=== PATIENT | female | born 1985 | race Caucasian/White ===

== ENCOUNTER 2023-04-19 16:30 | Outpatient (RCR) | payer OTHER, SELFPAY ==
--- NOTE | 2023-04-03 08:50 | HP.PTEVAL_ITS ---
Patient's Visit Information Visit Information Visit Information: SHANNON ORELLANA is a 38 year old F referred to Physical Therapy by RAVI Pollard with a diagnosis of Lateral Epicondylitis. Date of Evaluation: 03/29/23 Physical Therapist: Shreya Reno DPT Visit Plan Frequency: 2x /Week Duration: 4 Weeks Plan: Initial Evaluation performed by PT will transfer to OT Phase I Given For HEP: Manual Massage: Clockwise, Counterclockwise, Length of muscle, perpendicular to the muscle- moiste heat and wear a cock up splint at all times including sleep Initial Visit after IE: continue above and start Tricep stretching- move to phase II when no pain at rest and no more than 3/10 pain with ADL's in the brace- then follow PROTOCOL in folder, also scanned in pt chart. Subjective Subjective: Patient reports that she was stung by a wasp on her hand/shoulder around the same time and then her left arm swelled up and then started numb/tingling and the pain never really went away- [facility]- they put her on Predisone- didn't change anything- its been 2 weeks. So she went back and they sent her to PT. She also also went to see ortho who did x-rays of both elbow and cervical spine and everything came back normal. They want her to wear a brace, Meloxicam and PT. N/T- all the time- its in the hand to the elbow. Pain in the elbow is on the posterior elbow. N/T on the lateral two fingers. Describes the pain in the elbow as achy- and heavy. Worst: 8/10 Agg: hanging, cutting, using it Eases: propping it up Best: 3/10. She takes the Meloxicam in the morning before work and that helps- it kind of takes the edge off. Sleep: hard to get comfortable and will wake her up- side sleeper. No neck or shoulder/arm issues before. Right hand dominate. 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 Pain Left Elbow: Pain Intensity (Out of 10): 4 Objective Objective: Posture: FH, RS- guarding of the left UE- sits with it bent at the elbow resting comfortable on her lap Gait: decreased arm swing and trunk rotation Range of Motion: WFL in all planes of the cervical, shoulder, Elbow, wrist and hand. Does report mild discomfort with elbow extension and wrist flexion Strength: Scap: fair, Shoulder: 4+/5 throughout, Elbow: 4/5 with pain, Wrist: 4/5 with pain, [employer]: Right: 70 left: 30 Balance/Special Test Scores Quick DASH Score: 65.9075 Rehabilitation Potential Physical Therapy Diagnosis: Patient presents with hypomobility- she has decreased UE pain free ROM, strength and muscular endurance leading to poor posture and increased pain with ADL's. Rehabilitation Potential: Good Anticipated Interventions Patient/Client Instruction: Educate patient on: Benefits of Fitness Program Therapeutic Exercise to Include: Strength training, Endurance training, Balance training, Coordination, Agility training, Body mechanics, Postural training, Flexibilty training, Gait and locomotor training, Neuromotor development, Passive ROM, Active ROM, Dynamic Lumbar Stabilization and Scapular Strength/Stabilization Text: Thank you for the opportunity to evaluate your patient. For Medicare and Medicare HMO plans, please review the plan of care and approve it. It will need to be FAXED BACK to us at [phone] for Medicare purposes. For Medicare only, by signing this I certify the plan of care. Please let me know if there are questions or concerns regarding this plan of care. Physician Signature: Date:
--- NOTE | 2023-04-09 18:09 | HP.OTEVAL ---
Patient's Visit Information Visit Information Visit Information: SHANNON ORELLANA is a 38 year old F, referred to Occupational Therapy by RAVI Pollard, with a diagnosis of left lateral epi. Date of Evaluation: 04/09/23 Occupational Therapist: Arlen Morgan, CATHLEEN/[place], CHT Subjective Subjective: This 38 year old female was seen for OT eval with dx of left lateral epicondylitis. Patient reports that she was stung by a wasp on her hand/arm around the same time and then her left arm swelled up and then started numb/tingling and the pain never really went away- [facility]- they put her on Predisone- didn't change anything- its been 2 weeks. So she went back and they sent her to therapy. She also also went to see ortho who did x-rays of both elbow and cervical spine and everything came back normal. They want her to wear a brace, Meloxicam N/T- all the time- its in the hand to the elbow. Pain in the elbow is on the posterior elbow. N/T on the lateral two fingers. Describes the pain in the elbow as achy- and heavy. Worst: 03/29 Agg: pt states symptoms of tingling on dorsal and volar regions. states tingling gets worse with hot shower. pt states she has not tried ice yet. 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 pt has children sophomore in High school and youngest is 2 years old. pt states she is more concerned at this time with tingling and left elbow pain. Pain left arm: Current Pain Intensity: 4 Pain Intensity Range: 8 ROM Elbow: right 145/left 145 Forearm: right supination 70 left 65 ROM Comments: pt demo ROM WFL states some forearm tightness Strength Workers' Compensation Hearings Officer: right 80 left 35# Lateral Pinch: right 14# left 6# Tripod Pinch: right 10# left 8# Strength Comments: elbow straight 65# left 35# resistive wrist flex/extension little pain resistive forearm sup/pron little pain Sensation Sensation Comments: pt states Left LF and RF are tingling states dorsal forearm is tingling Special Tests Lat Epiconylitis - as named: left elbow posititive Quick DASH-Disab of Arm,Shoulder& Hand Quick DASH Score: 61.6650 Goals Goal:100% adherence to protocol: Yes Comment: conservative lateral epi guidelines Goal:ROM equal to unaffected hand: Yes Goal:Workers' Compensation Hearings Officer/Pinch strength at least 75% of unaffected hand: Yes Goal:No pain with affected hand use: Yes Goal:Full use of affected hand in daily activities including work: Yes Comment: bracing Other Goal: pt will demo understanding of using wrist brace and counter force brace to decrease stress tendon by end of 4th visit. pt will demo understanding of joint protection and protective marvel. to avoid stress on left elbow with daily tasks. pt will report a decrease in tingling/numbness by 50% by end of 6th session. Rehabilitation General Assessment: pt demo with positive lateral epi symptoms as well as complaints of tingling throughout radial and ulnar nerve distribution. This limits pts ind. with daily tasks and IADLS. Pt would benefit from skilled OT services 2x week for 6 weeks to decrease pts symptoms of tingling/numbness as well as pain of left forearm/elbow. pt demo understanding and agrees to POC. Rehabilitation Potential: Good Anticipated Interventions Anticipated Interventions: A/AAROM/PROM, Strengthening, Triggerpoint Release, Modalities, Orthoses, Joint Protection/Energy Conservation, Ergonomic Education, Education re assistive Equipment and Education re Diagnosis Visit Plan Frequency: 2x /Week Duration: 6 Weeks TEXT: Thank you for the opportunity to evaluate your patient. For Medicare and Medicare HMO plans, please review the plan of care and approve it. It will need to be FAXED BACK to us at [phone] for Medicare purposes. Please let me know if there are questions or concerns regarding this plan of care. Physician Signature: Date:
== END 2023-04-19 19:00 | disposition home or self-care (01) ==
LOC: OT 16:30
PROVIDERS: Referring Provider Physician Assistant; Visit Provider Physician Assistant
DX: M77.12 Lateral epicondylitis, left elbow (principal); S46.012D Strain of muscle(s) and tendon(s) of the rotator cuff of left shoulder, subsequent encounter
CPT/HCPCS: 97110; 97140; 97162; 97166

== ENCOUNTER → 2023-09-27 | Outpatient (CLI) | payer OTHER, SELFPAY ==
--- NOTE | 2023-09-27 14:20 | RAD_ITS ---
STUDY: X-RAY - LEFT WRIST REASON FOR EXAM: Female, 38 years old. Left wrist pain. 4 month history of swelling. TECHNIQUE: 4 view(s) of the wrist were obtained including navicular view.. COMPARISON: None. FINDINGS: Normal visualized distal radius and ulna. Normal radiocarpal articulation. Normal distal radioulnar articulation. Normal carpal bones. Normal carpal articulations. Normal carpometacarpal articulation of the thumb. Normal second through fifth carpometacarpal articulations. Normal visualized metacarpal bones. The soft tissue structures are unremarkable. RAD/Wrist min 3 Views IMPRESSION: Normal x-ray examination of the wrist. Electronically Signed: Jordan Burns MD at 14:49 EST ,
--- OUTSIDE RECORDS SUMMARY | 2023-09-27 16:59 | XMS RPT_ITS | CCD ---
Author Name Unknown Address [address] [place] [address] Organization [facility] Results Test Name Value Interpretation Reference Range Facil ity Summary Purpose Family History No Family History Records Found Advance Directives No Advanced Directives Records Found Additional Source Comments INFORMATION SOURCE (unrecogn ized section and content) FOR RECORDS PERTAINING TO PATIENTS WHO ARE OR HAVE BEEN ENROLLED IN A CHEMICAL DEPENDENCY/SUBSTANCEABUSE PROGRAM, SOME INFORMATION MAY BE OMITTED. This clinical summary was aggregated from multiple sources. Caution should be exercised in using it in the provision of clinical care. This summary normalizes information from multiple sources, and as a consequence, information in this document may materially change the coding, format and clinical context of patient data. In addition, data may be omitted in some cases. CLINICAL DECISIONS SHOULD BE BASED ON THE PRIMARY CLINICAL RECORDS. [facility] provides no warranty or guarantee of the accuracy or completeness of information in this document.
== END | disposition home or self-care (01) ==
LOC: MTRAD 14:20
PROVIDERS: Referring Provider Physician Assistant Surgical; Visit Provider Physician Assistant Surgical
DX: S66.912A Strain of unspecified muscle, fascia and tendon at wrist and hand level, left hand, initial encounter (principal)
CPT/HCPCS: 73110